=== PATIENT | female | born 1990 | race Caucasian/White ===

== ENCOUNTER 2016-09-28 20:39 | Emergency (ER) | payer BC ==
[~2016-09-28] VITALS: Ht 160 cm; Wt 62.2 kg
[2016-09-28 20:47] VITALS: TEMP 36.7; Ht 160 cm; Wt 62.2 kg
[2016-09-28] MEDS ORDERED: ACET325T96 PO (21:22)
[2016-09-28] MEDS ORDERED: IBUP-1050 PO (21:22)
[2016-09-28] MEDS ORDERED: BCPILLS PO (21:22)
[2016-09-28] MEDS ORDERED: PENICILLIN HOME PACK 500MG (4 DOSES)BTL PO ONE (21:30)
[2016-09-28] MEDS ORDERED: NORCO 5/325MG HOME PACK PO ONE (21:30)
[2016-09-28] MEDS ORDERED: PENI-82 PO (21:32)
[2016-09-28] MEDS ORDERED: HYDR-5688 PO (21:32)
[2016-09-28 21:41] VITALS: BP 132/73; PULSE 84; O2SAT 99
--- NOTE | 2016-09-29 00:02 | EMERGENCY ROOM VISIT NOTE ---
ED Visit Note First contact with patient: 21:11 CHIEF COMPLAINT: Toothache HISTORY OF PRESENT ILLNESS: This 26-year-old female patient presented to the emergency department with a progressive toothache for past 2 days. The patient believes it is coming from her right side teeth. The pain is now steady and severe and radiates to the face. The patient does not a dentist appointment set up, but does regularly follow with a dentist as she has Invisiline braces. They rate their pain a 8/10 and the ibuprofen and Tylenol they have been taking has not relieved the pain. Denies facial swelling or fever. The patient denies any discharge from the mouth. REVIEW OF SYSTEMS: A 6 system review of systems was completed with positives and pertinent negatives listed in the HPI. ALLERGIES: No known allergies MEDICATIONS: No chronic medications PMH: Otherwise healthy SOCIAL HISTORY: Lives locally PHYSICAL EXAM: Vitals are noted on the nurse's note and reviewed by myself. Vital signs stable. GENERAL: White female, in no acute distress, nondiaphoretic, well-developed well -nourished. Mouth: Right side lower gumline is swollen and tender around it, without any discharge or signs of an abscess. The remainder of the pharynx and tonsils are without erythema, edema, or exudate. The airway is patent. There is no facial swelling, cervical or submandibular lymphadenopathy. The patient appears uncomfortable and in pain. The patient has overall good dental hygiene. EARS: External auditory canals clear, tympanic membranes pearly dominguez without erythema or effusion bilaterally. HEART: Regular rate and rhythm without murmur gallop or rub LUNG: Clear to auscultation bilateral ED COURSE: Physical exam and history were performed. Nursing notes and EMR were reviewed. The patient has pain of her teeth for the past 2 days. Overall her teeth are in good repair, but she does have some swelling of her gum line. The patient will be given a course of Pen-Vee K and Vicodin. She is to follow with her PCP with any ongoing or persistent symptoms. She was otherwise invited back to the ER with any new, worsening, or concerning symptoms. Current/Historical Medications Scheduled Control Pills ( Control Pills), 1 TAB PO DAILY Ibuprofen (Advil), 400 MG PO PRN UD Penicillin V Potassium (Veetids), 500 MG PO QID Scheduled PRN Acetaminophen Tab (Tylenol), 650 MG PO Q4 PRN for Pain Hydrocodone/Acetaminophen 5MG/325MG ([place] 5MG/325MG), 1 TABLET PO Q6 PRN for Pain Allergies Coded Allergies: No Known Allergies (Unverified , 01/17/15) Vital Signs Date Time Temp Pulse Resp B/P Pulse Ox O2 Delivery O2 Flow Rate FiO2 09/28/16 21:41 84 18 132/73 99 Room Air 09/28/16 20:47 36.7 83 18 115/77 100 Room Air Medications Administered Medications (Trade) Dose Ordered Sig/Thang Route Start Time Stop Time Status Last Admin Dose Admin Acetaminophen/ Hydrocodone Bitart ([place] 5/325mg Home Pack) 1 homepack UD ONCE PO 09/28/16 21:30 09/28/16 21:31 DC 09/28/16 21:40 1 HOMEPACK Penicillin V Potassium (Pen-Vk 500MG Home Pack) 1 homepack UD ONCE PO 09/28/16 21:30 09/28/16 21:31 DC 09/28/16 21:40 1 HOMEPACK Departure Information Impression Primary Impression: Pain, dental Dispostion Home / Self-Care Condition GOOD Prescriptions Penicillin V Potassium (Veetids) 500 Mg Tab 500 MG PO QID for 10 Days, #40 TAB Prov: Ren Dooley PA-C 09/28/16 Hydrocodone/Acetaminophen 5MG/325MG ([place] 5MG/325MG) Tab 1 TABLET PO Q6 Y for Pain, #12 TAB For Initial Treatment Prov: Ren Dooley PA-C 09/28/16 Forms HOME CARE DOCUMENTATION FORM, IMPORTANT VISIT INFORMATION Patient Instructions [facility] Additional Instructions You were seen and evaluated today on an emergency basis only. This is not a substitute for, or an effort to provide, complete comprehensive medical care. It is not possible to recognize and treat all injuries or illnesses in a single emergency department visit. For this reason it is recommended that you followup with your dentist as soon as possible for definitive care. For baseline pain relief you may alternate ibuprofen and acetaminophen every 4 hours for pain control. Take 600 mg ibuprofen (Advil) and then 4 hours later take 1000 mg acetaminophen (Tylenol). Do not take more than 3000 mg acetaminophen in a single day. [place] (hydrocodone/acetaminophen) 5/325 mg every 6 hours as needed for worsening breakthrough pain. Do not drink or drive on [place]. This medication will likely make you tired. Do not take [place] and Tylenol at the same time as both contain acetaminophen. [place] may cause constipation. You may wish to take an [id number] stool softener like Colace if this occurs. Take Pen-Vee K 500 mg 4 times daily for the next 10 days. You are welcome to return to the emergency department anytime with new, worsening, or concerning symptoms.
== END 2016-09-28 21:42 | disposition home or self-care (01) ==
LOC: C.EDB 20:40 → C.EDD 21:42
DX: K08.89 Other specified disorders of teeth and supporting structures (principal); Z79.3 Long term (current) use of hormonal contraceptives

== ENCOUNTER → 2016-10-28 | Outpatient (CLI) | payer BC ==
[~2016-10-28] MED LIST: ACET325T96 PO; BCPILLS PO; HYDR-5688 PO; IBUP-1050 PO
== END | disposition home or self-care (01) ==
LOC: C.PAPS 10:31
PROVIDERS: ATTEND Obstetrics & Gynecology
DX: R87.610 Atypical squamous cells of undetermined significance on cytologic smear of cervix (ASC-US) (principal)

== ENCOUNTER → 2017-01-11 | Outpatient (CLI) | payer BC | END | disposition home or self-care (01) | LOC: C.LAB1850 17:03 | PROVIDERS: ATTEND Obstetrics & Gynecology | DX: O20.0 Threatened abortion (principal) ==

== ENCOUNTER → 2017-02-01 | Outpatient (CLI) | payer BC ==
[2017-02-01 18:25] LABS: URINE APPEARANCE TURBID (CLEAR); URINE BILIRUBIN NEG (NEG); URINE COLOR YELLOW; URINE NITRITE NEG (NEG); URINE PH 7.5 (4.5-7.5); URINE SPECIFIC GRAVITY 1.017 (1.000-1.030); UROBILINOGEN NEG (NEG)
[2017-02-01 18:34] LABS: MANUAL MICROSCOPIC REQUIRED? NO; REVIEW REQ? NO
== END | disposition home or self-care (01) ==
LOC: C.LABSPEC 17:49
PROVIDERS: ATTEND Obstetrics & Gynecology
DX: Z34.91 Encounter for supervision of normal pregnancy, unspecified, first trimester (principal)

== ENCOUNTER → 2017-02-03 | Outpatient (CLI) | payer BC ==
[2017-02-03 15:26] LABS: BASO % 0.3 %; BASO ABS # 0.02 K/uL (0-0.2); COMPLETE YES; EOS % 2.4 %; HEMATOCRIT 35.7 % (37-47); IG% 0.3 %; LYMPH % 35.7 %; LYMPH ABS # 2.22 K/uL (1.2-3.4); MEAN CELL VOLUME 85.4 fL (80-100); MEAN CORPUSCULAR HEMOGLOBIN 31.3 pg (25-34); MEAN CORPUSCULAR HGB CONC 36.7 g/dl (32-36); MEAN PLATELET VOLUME 8.9 fL (7.4-10.4); MONO % 8.5 %; NEUT % 52.8 %; PLATELET COUNT 329 K/uL (130-400); RED BLOOD COUNT 4.18 M/uL (4.2-5.4); WHITE BLOOD COUNT 6.21 K/uL (4.8-10.8)
[2017-02-07 00:44] LABS: CHLAMYDIA TRACH RNA*** NOT DETECTED (NOT DETECTED); GC (NEIS GONORRHOEAE)RNA** NOT DETECTED (NOT DETECTED)
== END | disposition home or self-care (01) ==
LOC: C.LAB1850 12:42
PROVIDERS: ATTEND Obstetrics & Gynecology
DX: Z34.91 Encounter for supervision of normal pregnancy, unspecified, first trimester (principal)

== ENCOUNTER → 2017-03-31 | Outpatient (CLI) | payer BC ==
[2017-03-31 15:29] LABS: GTGD 50 Grams
== END | disposition home or self-care (01) ==
LOC: C.LAB1850 12:19
PROVIDERS: ATTEND Obstetrics & Gynecology
DX: Z34.82 Encounter for supervision of other normal pregnancy, second trimester (principal)

== ENCOUNTER → 2017-06-23 | Outpatient (CLI) | payer OTHER ==
[~2017-06-23] MED LIST changes: +ACET-1693 PO; -ACET325T96 PO; -HYDR-5688 PO
[2017-06-23 14:40] LABS: HEMATOCRIT 32.4 % (37-47); HEMOGLOBIN 11.1 g/dL (12.0-16.0)
== END | disposition home or self-care (01) ==
LOC: C.LAB1850 12:31
PROVIDERS: ATTEND Obstetrics & Gynecology
DX: Z34.83 Encounter for supervision of other normal pregnancy, third trimester (principal)

== ENCOUNTER → 2017-08-18 | Outpatient (CLI) | payer OTHER | END | disposition home or self-care (01) | LOC: C.LABSPEC 15:57 | PROVIDERS: ATTEND Obstetrics & Gynecology | DX: Z34.83 Encounter for supervision of other normal pregnancy, third trimester (principal) ==

== ENCOUNTER 2017-09-06 06:27 | Inpatient (IN) | payer OTHER ==
[~2017-09-06] VITALS: Ht 160 cm; Wt 78.6 kg
[2017-09-06] MEDS ORDERED: LACTATED RINGER'S 1000ML 1,000 ML IV PRN (06:37)
[2017-09-06 07:01] LABS: HEMATOCRIT 32.5 % (37-47); HEMOGLOBIN 10.6 g/dL (12.0-16.0); MEAN CELL VOLUME 79.5 fL (80-100); MEAN CORPUSCULAR HEMOGLOBIN 25.9 pg (25-34); MEAN CORPUSCULAR HGB CONC 32.6 g/dl (32-36); MEAN PLATELET VOLUME 8.6 fL (7.4-10.4); PLATELET COUNT 258 K/uL (130-400); RED CELL DISTRIBUTION WIDTH CV 13.3 % (11.5-14.5); RED CELL DISTRIBUTION WIDTH SD 38.4 fL (36.4-46.3); WHITE BLOOD COUNT 9.59 K/uL (4.8-10.8)
[2017-09-06] MEDS ORDERED: BUPIVACAINE 0.25% 30 ML VIAL ONE (07:15)
[2017-09-06] MEDS ORDERED: FENTANYL CITRATE INJ 50 MCG/1 ML 2 ML VIAL ONE (07:15)
[2017-09-06] MEDS ORDERED: EpHEDrine SULFATE INJ 50 MG/ML AMP ONE (07:15)
[2017-09-06] MEDS ORDERED: FENTANYL 2MCG/ML ROPIV 1.25MG/ML 100ML BAG ONE (07:16)
[2017-09-06] MEDS: LACTATED RINGER'S 1000ML 1,000 ML IV SCH ×2 (07:30→08:30)
[2017-09-06] MEDS ORDERED: NALOXONE HCL INJ 1 MG in SODIUM CHLORIDE 0.9% 1000ML 1,000 ML IV PRN (07:54)
[2017-09-06] MEDS ORDERED: LACTATED RINGER'S 1000ML 500 ML IV PRN (07:54)
[2017-09-06] MEDS ORDERED: EpHEDrine SULFATE INJ 50 MG/ML AMP IV PRN (08:00)
[2017-09-06] MEDS ORDERED: NALOXONE HCL INJ 0.4 MG/1 ML VIAL/CARP IV PRN (08:00)
[2017-09-06] MEDS ORDERED: NALBUPHINE HCL INJ 10 MG/ML AMP IV PRN (08:00)
[2017-09-06] MEDS ORDERED: FENTANYL 2MCG/ML ROPIV 1.25MG/ML 100ML BAG EPI PRN (08:00)
[2017-09-06] MEDS ORDERED: DiphenhydrAMINE HCL 50 MG/ML VIAL IV PRN (08:00)
[2017-09-06 08:22] VITALS: Ht 160 cm; Wt 78.6 kg
[2017-09-06] MEDS ORDERED: PRENTAB26 PO (08:23)
[2017-09-06] MEDS ORDERED: OXYTOCIN 30 UNITS/500ML NSS IV ONE (09:01)
[2017-09-06] MEDS ORDERED: LANOLIN OINT EXT PRN (13:30)
[2017-09-06] MEDS ORDERED: OXYTOCIN 30 UNITS/500ML NSS IV PRN (13:30)
[2017-09-06] MEDS ORDERED: HYDROCORTISONE ACETATE 25 MG SUPP PR PRN (13:30)
[2017-09-06] MEDS ORDERED: OXYCODONE/ACETAMINOPHEN 5-325 TAB PO PRN (13:30)
[2017-09-06] MEDS ORDERED: ACETAMINOPHEN 325 MG TAB PO PRN (13:30)
[2017-09-06] MEDS ORDERED: BENZOCAINE 20% AER SPR 82.5 GM CAN EXT PRN (13:30)
[2017-09-06] MEDS ORDERED: SUPERCREAM 0.870 % 15GM JAR EXT PRN (13:30)
--- NOTE | 2017-09-06 14:19 | DELIVERY SUMMARY ---
DATE OF OPERATION: 09/06/2017 PREDELIVERY DIAGNOSES: 1. A 27-year-old G4, P2-0-1-2 at 38 weeks 6 days. 2. Spontaneous labor. POSTDELIVERY DIAGNOSES: 1. A 27-year-old G4, P2-0-1-2 at 38 weeks 6 days. 2. Spontaneous labor. 3. Manual extraction of placenta. PROCEDURES: Spontaneous vaginal delivery, repair of first-degree perineal laceration, manual extraction of placenta. COMPLICATIONS: None. ESTIMATED BLOOD LOSS: 300 mL. FINDINGS: Viable female with Apgars 8 and 9, weight pending, please see nursery records. DESCRIPTION OF DELIVERY: The patient presented in spontaneous labor and received an epidural and progressed to complete. She then began to push. She spontaneously vaginally delivered a viable female from the cephalic presentation with the head in right occiput anterior position. The head delivered. Nuchal cord x1 was noted; however, this was not easily reduced since the decision was made to delivery the baby through. The anterior shoulder delivered followed by the posterior shoulder followed by the body of the baby that was placed on mother's abdomen and untangled from the umbilical cord, which was also wrapped around the body and foot, and a spontaneous cry was heard. Delayed cord clamping was employed, and after 1 minute and cessation of pulsation of the cord, the cord was doubly clamped and cut. A segment was retained for cord gasses, cord blood was obtained, and then using gentle traction on the cord, active management of the third stage labor was performed; however, delivery of placenta yielded approximately half the placenta, and I manually extracted the remaining placenta from the uterus. The uterus was swept and found to be clear of all remaining placental pieces. The Pitocin was given, and the uterus became firm. The cervix, vagina, and perineum were inspected for lacerations, and a first-degree perineal laceration was noted and repaired it in standard fashion with 3-0 Vicryl in a running stitch. Excellent hemostasis was observed. Sponge, instrument, and needle counts were correct at the conclusion of the delivery x2. Excellent hemostasis was observed. The patient will receive 24 hours of Ancef IV post delivery due to manual extraction of the placenta. I attest to the content of the Intraoperative Record and any orders documented therein. Any exception s are noted below.
--- NOTE | 2017-09-06 14:44 | Anesthesia Procedure Note ---
Anesthesia Epidural Removal Nt Date & Time September 06, 2017 at 14:44 Vital Signs Pain Intensity: 0.0 Notes Mental Status: alert / awake / arousable, participated in evaluation Nausea / Vomiting: adequately controlled Pain: adequately controlled Airway Patency, RR, SpO2: stable & adequate BP & HR: stable & adequate Hydration State: stable & adequate Neuraxial Anesthesia: was administered Anesthetic Complications: no major complications apparent, pt satisfied with anesthetic care Epidural: removed without complications, with tip intact
[2017-09-06] MEDS ORDERED: CEFAZOLIN IV 1,000 MG in DEXTROSE 5% 50ML 50 ML IV SCH (15:00)
[2017-09-06 15:50] VITALS: BP 120/73; PULSE 93; TEMP 36.8; O2SAT 100
[2017-09-06] MEDS: IBUPROFEN 600 MG TAB PO PRN ×2 (16:00→19:55)
--- NOTE | 2017-09-06 16:28 | Discharge Instructions ---
Discharge Instructions Date of Service September 06, 2017. Admission Reason for Admission: LABOR Discharge Discharge Diagnosis / Problem: Vaginal Delivery Discharge Goals Goal(s): Routine recovery after delivery Medications Continue Dispensed Medications: supercream, dermaplast, tucks, lansinoh Activity Recommendations Activity Limitations: per Instructions/Follow-up section . Instructions / Follow-Up Instructions / Follow-Up ACTIVITY RECOMMENDATIONS: * Gradual return to full activity over the next 2-3 weeks. * No lifting - nothing heavier than baby over the next 2-3 weeks. * Do not engage in vigorous exercise, sexual activity or sports until cleared by your physician. * Do not drive or operate any motorized equipment until cleared by your physician. * You may shower/bathe daily. MEDICATIONS: For discomfort or pain, you may use Acetaminophen (Tylenol), Ibuprofen (Advil), or Naproxen (Aleve) following the package directions. For constipation you may use Colace following the package directions. BREAST CARE: If you are not breast feeding: * Wear a supportive bra 24 hours a day for one to two weeks. * Avoid stimulating your breasts and nipples as much as possible during the first few weeks after delivery. * When taking a shower, have the warm water hit your back, not breasts. * When your breasts feel full, apply ice packs. Usually three to four times a day helps ease the discomfort. * Take a mild pain medication (Tylenol / Motrin) when you are uncomfortable. If breast feeding: * Use breast milk to lubricate nipples. Lansinoh cream may be used for sore nipples. You do not need to remove cream prior to breast feeding. If using a different brand of cream, check the label for directions regarding removal of cream prior to nursing. * Wear a supportive bra. * If having problems with breasts or breast feeding, call a internet consultant or your health care provider. EPISIOTOMY CARE: After delivery, if you have an episiotomy (stitches), the following steps will ease discomfort and aid healing. * For the first 24 hours after delivery, place ice packs next to your episiotomy to help reduce swelling. * After the first 24 hour-period, sitz baths, either portable or in the tub, are suggested. A shower with a shower arm sprayed over the episiotomy may be comforting. * Casi care should be done after each voiding and bowel movement. Squirt warm water from a plastic bottle over the perineum (region of the body between the anus and urinary opening) and pat dry. * Use Dermoplast to ease discomfort. Shake container. [place] directly over the episiotomy. Place a Tucks on a clean sanitary pad next to your episiotomy. SPECIAL CARE INSTRUCTIONS: When you are discharged from the hospital, it is important for you to follow the instructions listed below: * During the first week at home, you should be able to care for yourself and your baby. In addition, the usual light household activities are encouraged. * Limit your activities to the way you feel. Do not try to clean the house or move furniture. Be sensible. * If you actively engage in sports and have done so up until the time of your delivery, you may resume these activities as soon as you feel able. This may take up to one month or even longer. Use good judgment. * Continue to take your vitamins for at least six weeks after the of your baby. * Your diet need not be limited unless you were on a special diet before your delivery. Breast-feeding mothers need around 2500 calories per day and at least 64-80 ounces of fluid per day (8 to 10 glasses). * You should eat foods from the four major food groups. Crash diets or fad diets are to be avoided. Eating lean meats, fresh fruits and vegetables, low-fat dairy products, high fiber foods and a regular exercise program, will help you get back to your pre- weight without putting your health at risk. * Constipation is sometimes a problem after delivery. Take a mild laxative as needed. If breast feeding, Milk of Magnesia is acceptable to use. You may use a suppository or Fleets enema if no episiotomy. * A daily shower or tub bath is suggested. Be sure to thoroughly and gently dry the perineum. * A bloody vaginal discharge will usually continue until around four weeks post . A small amount of bleeding may continue for as long as six weeks. Vaginal discharge changes from the bright red bleeding after delivery to pink then brownish and finally yellowish-pink before becoming white and disappearing. * Bleeding may increase with activity. Your first period may come in 4-8 weeks. If you are breast feeding, your period may be delayed even longer. * [place] (sex) can begin whenever both you and your partner feel comfortable and do not have any form of genital infection. It is recommended that you wait at least six weeks for internal and external healing to occur. If you have questions, please talk to your health care practitioner. A condom should be used to prevent infection and . * Foreplay, gentle intercourse and lubrication is very important the first several times to prevent pain. A water-based lubricant such as K-Y jelly or Astroglide may be used. * If you have RH negative blood and your baby is RH positive, you will receive RHOGAM by injection prior to discharge. The nurse will give you a card to keep with you that has the date and place that you received RHOGAM after delivery. * During your care, you had a Rubella screen done to check for the presence of rubella antibodies in your blood. If your test was negative, you will receive a Rubella vaccine prior to discharge. This vaccine may cause a fever, soreness at the injection site and flu-like symptoms. If these symptoms persist, notify your health care practitioner. is not advised for one month after a Rubella vaccine. * Verbalizes understanding of car seat law as reviewed with patient nursing. * Car Seat hand-out given and reviewed with patient by nursing. * Shaken baby information reviewed with patient by nursing. Call you doctor if: * Heavy bleeding (saturating several pads an hour) or passing clots the size of your fist. * A fever >101 degrees F (38.3 degrees C) on two occasions four hours apart and /or chills. * Unusual pain in the pelvic or vaginal areas. * "Baby Blues" lasting longer than two weeks. If you have any questions or concerns, call your health care practitioner at . FOLLOW UP VISIT: * Please call the office at to schedule a 6 week examination. It is important you keep this appointment. It is important for you to make arrangements for either yearly or twice yearly check-ups thereafter. Current Hospital Diet Patient's current hospital diet: Regular OB Diet Discharge Diet Recommended Diet: Regular Diet Pending Studies Studies pending at discharge: no Medical Emergencies . Who to Call and When: Medical Emergencies: If at any time you feel your situation is an emergency, please call [phone] immediately. . Non-Emergent Contact Non-Emergency issues call your: Primary Care Provider . . "Provider Documentation" section prepared by Mp Stokes. .
[2017-09-06] MEDS: DOCUSATE SODIUM 100 MG CAP PO SCH (19:55)
[2017-09-06 21:00] VITALS: BP 119/78; PULSE 70; TEMP 36.6
[2017-09-07] MEDS: CEFAZOLIN IV 1,000 MG in SYRINGE 0 ML IV SCH ×3 (00:45→15:32)
[2017-09-07 01:45] VITALS: BP 109/73; PULSE 78; TEMP 36.8
[2017-09-07 04:45] VITALS: BP 111/72; PULSE 82; TEMP 36.9
--- NOTE | 2017-09-07 06:38 | Progress Note ---
Subjective September 07, 2017. Subjective conversation w/ patient Ambulation: ambulating normally Voiding: no voiding problems Diet Tolerance: Regular Diet Lochia: Moderate Feeding Type: Bottle Feeding Pain: mild pain improved with analgesia Review of Systems Constitutional: No fever, No chills Respiratory: No shortness of breath Cardiac: No chest pain Abdomen: No nausea, No vomiting Objective Vital Signs Date Time Temp Pulse Resp B/P (MAP) Pulse Ox O2 Delivery O2 Flow Rate FiO2 09/07/17 04:45 36.9 82 17 111/72 (85) Room Air 09/07/17 01:45 Room Air 09/07/17 01:45 36.8 78 20 109/73 (85) Room Air 09/06/17 21:00 36.6 70 18 119/78 (92) Room Air 09/06/17 15:50 36.8 93 18 120/73 (89) 100 Room Air Physical Exam General Appearance: WELL-APPEARING, WD/WN, NO APPARENT DISTRESS Respiratory/Chest: lungs clear, normal breath sounds Cardiovascular: regular rate, rhythm Abdomen: soft Fundus: Firm, Non-Tender, Relation to Umbilicus (2 below) Extremities: no pedal edema, no calf tenderness Laboratory Results Last 24 Hours Test 09/06/17 06:46 09/07/17 04:44 White Blood Count 9.59 K/uL Red Blood Count 4.09 M/uL Hemoglobin 10.6 g/dL Hematocrit 32.5 % Mean Corpuscular Volume 79.5 fL Mean Corpuscular Hemoglobin 25.9 pg Mean Corpuscular Hemoglobin Concent 32.6 g/dl RDW Standard Deviation 38.4 fL RDW Coefficient of Variation 13.3 % Platelet Count 258 K/uL Mean Platelet Volume 8.6 fL Assessment and Plan Problem List Medical Problems: (1) Pain, dental Status: Acute (2) Pain, dental Status: Acute Post- Day#: 1 Continue Routine Care: 27F s/p NVD w/manual extraction of placenta day 1 - pt received 24 hours of Ancef post delivery given manual extraction of placenta - B+, Rubella Immune, GBS -ve - pt doing well clinically - Vital signs reviewed and WNL - will review hemoglobin when labs available - Encourage ambulation, monitor and control pain with Motrin PRN - Encourage breast feeding Resident Physician Supervision Note: I was present with Dr. Tarmohamed during the history and exam. I discussed the case with the resident and agree with the findings and plan as documented in the note. Any exceptions or clarifications are listed here: PPD#1 doing well. Considering going home later today. Documented By: Viv Patel Resident Tracking Resident Involvement: Resident Care Provided Care Provided: OB Delivery
[2017-09-07 07:01] LABS: HEMATOCRIT 32.3 % (37-47); HEMOGLOBIN 10.4 g/dL (12.0-16.0)
[2017-09-07 07:52] VITALS: BP 113/77; PULSE 87; TEMP 37
[2017-09-07] MEDS: DOCUSATE SODIUM 100 MG CAP PO SCH (08:18)
[2017-09-07] MEDS: IBUPROFEN 600 MG TAB PO PRN (08:18)
--- NOTE | 2017-09-07 10:27 | Progress Note ---
Subjective September 07, 2017. Subjective conversation w/ patient (desires d/c, bleeding stable) Voiding: no voiding problems Objective Vital Signs Date Time Temp Pulse Resp B/P (MAP) Pulse Ox O2 Delivery O2 Flow Rate FiO2 09/07/17 07:52 37.0 87 16 113/77 (89) Room Air 09/07/17 07:50 Room Air 09/07/17 04:45 36.9 82 17 111/72 (85) Room Air 09/07/17 01:45 Room Air 09/07/17 01:45 36.8 78 20 109/73 (85) Room Air 09/06/17 21:00 36.6 70 18 119/78 (92) Room Air 09/06/17 15:50 36.8 93 18 120/73 (89) 100 Room Air Laboratory Results Last 24 Hours Test 09/07/17 06:41 Hemoglobin 10.4 g/dL Hematocrit 32.3 % Assessment and Plan Problem List Medical Problems: (1) Pain, dental Status: Acute (2) Pain, dental Status: Acute Post- Day#: 1 Continue Routine Care: - patient desires d/c - bleeding stable - instructions given - f/u in 6 weeks
[2017-09-07 12:30] VITALS: BP 106/71; PULSE 84; TEMP 36.6
[2017-09-07 16:00] VITALS: BP_DIAS 71; PULSE 84; TEMP 36.6
[2017-09-07] MEDS ORDERED: BISACODYL 5 MG TABEC PO SCH (20:00)
== END 2017-09-07 16:30 | disposition home or self-care (01) | DRG 775 ==
LOC: C.LD 06:27 → C.OPB 06:27 → C.LD 06:38 → C.OBG 15:54 → EDSTATUS 09-14 06:26
PROVIDERS: ADMIT Obstetrics & Gynecology; ATTEND Obstetrics & Gynecology
PROC: 10E0XZZ Delivery of Products of Conception, External Approach (ICD-10-PCS; principal; 2017-09-06)
PROC: 0HQ9XZZ Repair Perineum Skin, External Approach (ICD-10-PCS; principal; 2017-09-06)
DX: O70.0 First degree perineal laceration during delivery (principal); O69.81X0 Labor and delivery complicated by cord around neck, without compression, not applicable or unspecified; Z3A.38 38 weeks gestation of pregnancy; Z37.0 Single live birth